=== PATIENT | female | born 1950 | race Caucasian/White ===

== ENCOUNTER → 2016-06-06 | Outpatient (CLI) | payer MEDICARE, OTHER ==
[2016-06-06 12:51] LABS: MEAN CORPUSCULAR HEMOGLOBIN 28.1 pg (27.0-33.0); MEAN CORPUSCULAR VOLUME 87.7 fl (80.0-96.0); WHITE BLOOD COUNT 3.5 K/mm3 (4.0-10.0)
== END ==
LOC: M LAB 11:31
PROVIDERS: ATTEND Internal Medicine Pulmonary Disease
DX: I27.9 Pulmonary heart disease, unspecified (principal)

== ENCOUNTER → 2016-08-21 | Outpatient (CLI) | payer MEDICARE, OTHER ==
[2016-08-21 13:57] LABS: ALBUMIN 3.4 GM/DL (3.2-5.2); ALBUMIN/GLOBULIN RATIO 1.17 (1.00-1.93); ALKALINE PHOSPHATASE 83 U/L (45-117); ALT/SGPT 15 U/L (12-78); ANION GAP 9 MEQ/L (8-16); AST/SGOT 10 U/L (15-37); BILIRUBIN,TOTAL 0.1 MG/DL (0.2-1.0); BLOOD UREA NITROGEN 11 MG/DL (7-18); CALCIUM LEVEL 8.1 MG/DL (8.8-10.2); CARBON DIOXIDE LEVEL 25 MEQ/L (21-32); CHLORIDE LEVEL 109 MEQ/L (98-107); CREATININE FOR GFR 0.61 MG/DL (0.55-1.02); GLOMERULAR FILTRATION RATE > 60.0 (>45); GLUCOSE, FASTING 153 MG/DL (80-110); POTASSIUM SERUM 3.8 MEQ/L (3.5-5.1); SODIUM LEVEL 143 MEQ/L (136-145); TOTAL PROTEIN 6.3 GM/DL (6.4-8.2)
== END ==
LOC: M LAB 11:35
PROVIDERS: ATTEND Internal Medicine Pulmonary Disease
DX: I27.9 Pulmonary heart disease, unspecified (principal)

== ENCOUNTER → 2016-10-29 | Outpatient (CLI) | payer MEDICARE, OTHER ==
--- NOTE | 2016-10-29 15:57 | ECHO ---
DATE OF STUDY: 10/29/2016 REFERRING PHYSICIAN: Dr. Srinath Barriga INDICATION: Pulmonary hypertension. HEIGHT: 63 inches. WEIGHT: 205 pounds. 2D MEASUREMENTS: Left atrium: 4.0 cm Ventricular septum: 1.10 cm Posterior wall: 1.19 cm Left ventricle diastole: 4.2 cm Aortic root: 3.1 cm LVOT: 1.8 cm Inferior vena cava: (>50% respiratory variation) DOPPLER MEASUREMENTS: Aortic valve velocity: 190 cm/s LVOT velocity: 90.2 cm/s LVOT VTI: 21.5 cm Mild mitral regurgitation. Mitral E velocity: 60.7 cm/s Mitral A velocity: 87.4 cm/s Mild deceleration time 285 milliseconds Very mild tricuspid regurgitation. Pulmonary artery systolic pressure: 27 mmHg by pulmonary acceleration time Pulmonary acceleration time 116 milliseconds MITRAL ANNULAR TISSUE DOPPLER: E prime lateral: 13.9 cm/s DESCRIPTION: Rhythm was sinus. This was a moderately technically difficult echocardiogram. No pericardial effusion. This was a 2D, M-mode, color flow Doppler, and pulse wave Doppler examination and included mitral annular tissue Doppler. CONCLUSIONS: 1. Normal pulmonary artery systolic pressure (27 mmHg). Central venous pressure estimated to be 5-10 mmHg. Normal right ventricle size and systolic function. Normal right atrial size. 2. Normal left ventricle internal dimensions and wall thickness. Normal regional left ventricle (LV) wall motion and wall thickening. Normal LV systolic functioning. Left ventricular ejection fraction (LVEF) 70% by visual estimate. Normal LV diastolic dysfunction. 3. Mild left atrial dilatation. 4. Moderate aortic valve sclerosis of a three-cusp aortic valve. No aortic stenosis or aortic regurgitation.
== END ==
LOC: M CARPUL 08:16
PROVIDERS: ATTEND Internal Medicine Pulmonary Disease
DX: I27.9 Pulmonary heart disease, unspecified (principal); I35.8 Other nonrheumatic aortic valve disorders

== ENCOUNTER → 2016-11-27 | Outpatient (CLI) | payer MEDICARE, OTHER ==
[~2016-11-27] MED LIST: BRIM1OPD; CYCL10TA PO; DEXI60CA2; FURO20TA2; JANU100T; LETA1TAB PO; MYCO500T; PENT400T47; PERC5TAB12 PO; QUIN1TAB15; ROSU10TA2; SERT-155; SPIR25TA2; SYNT50TA; TIMO0.5S29; VESI10TA2; ZITHTAB PO
== END ==
LOC: M LAB 11:23
PROVIDERS: ATTEND Internal Medicine Pulmonary Disease
DX: I27.9 Pulmonary heart disease, unspecified (principal)

== ENCOUNTER 2017-01-30 16:02 | Emergency (ER) | payer MEDICARE, OTHER ==
[~2017-01-30] VITALS: Ht 160 cm; Wt 93.6 kg
[2017-01-30] MEDS ORDERED: FURO20TA2 (16:15)
[2017-01-30] MEDS ORDERED: TIMO0.5S29 (16:15)
[2017-01-30] MEDS ORDERED: SPIR25TA2 (16:15)
[2017-01-30] MEDS ORDERED: MYCO500T (16:15)
[2017-01-30] MEDS ORDERED: JANU100T (16:15)
[2017-01-30] MEDS ORDERED: LETA1TAB PO (16:15)
[2017-01-30] MEDS ORDERED: ROSU10TA2 (16:15)
[2017-01-30] MEDS ORDERED: QUIN1TAB15 (16:15)
[2017-01-30] MEDS ORDERED: PENT400T47 (16:15)
[2017-01-30] MEDS ORDERED: VESI10TA2 (16:15)
[2017-01-30] MEDS ORDERED: SYNT50TA (16:15)
[2017-01-30] MEDS ORDERED: BRIM1OPD (16:15)
[2017-01-30] MEDS ORDERED: SERT-155 (16:15)
[2017-01-30] MEDS ORDERED: DEXI60CA2 (16:15)
[2017-01-30] MEDS ORDERED: PERCOCET 5MG/325MG TAB PO ONE (18:30)
[2017-01-30] MEDS ORDERED: PERC5TAB12 PO (19:34)
[2017-01-30] MEDS ORDERED: CYCL10TA PO (19:34)
[2017-01-30] MEDS ORDERED: ZITHTAB PO (19:40)
[2017-01-30 19:48] VITALS: BP 131/83
--- NOTE | 2017-01-30 20:40 | REP ---
LEFT RIB SERIES: Four views of the left ribs are performed. There is a possible nondisplaced fracture of the left 8th rib laterally. No other acute fracture is seen. There are old healed fractures of the left 5th through 7th ribs. An accompanying view of the chest demonstrates no acute infiltrate or pneumothorax. There is no pleural effusion identified. IMPRESSION: Possible acute fracture lateral left 8th rib. Signed by Dylan Sevilla MD 01/31/2017 05:13 P
== END 2017-01-30 19:49 | disposition home or self-care (01) ==
LOC: M ED 16:02
DX: S22.32XA Fracture of one rib, left side, initial encounter for closed fracture (principal); W19.XXXA Unspecified fall, initial encounter; Y92.9 Unspecified place or not applicable; Y93.9 Activity, unspecified; Y99.9 Unspecified external cause status; I51.9 Heart disease, unspecified; E78.00 Pure hypercholesterolemia, unspecified; I10 Essential (primary) hypertension; I27.2 Other secondary pulmonary hypertension; H40.9 Unspecified glaucoma; E11.9 Type 2 diabetes mellitus without complications; E03.9 Hypothyroidism, unspecified; M32.9 Systemic lupus erythematosus, unspecified; M35.9 Systemic involvement of connective tissue, unspecified; Z79.899 Other long term (current) drug therapy; Z88.2 Allergy status to sulfonamides

== ENCOUNTER 2017-02-04 08:35 | Emergency (ER) | payer MEDICARE, OTHER ==
[~2017-02-04] VITALS: Ht 160 cm; Wt 93.6 kg
[2017-02-04] MEDS ORDERED: MORPHINE 4 MG/ML 1ML SYRINGE IV ONE ×2 (09:30→11:00)
[2017-02-04] MEDS ORDERED: ALBUTEROL SULFATE 2.5 MG/0.5 ML INH NEB SOLN NEB ONE (09:30)
[2017-02-04] MEDS ORDERED: NS 1,000 ML IV ONE (09:30)
[2017-02-04 10:03] LABS: BASO % 0.2 % (0.0-1.0); EOS # 0.1 10^3/uL (0.0-0.50); EOS % 1.7 % (0.0-3.0); IMMATURE GRANULOCYTE % 0.3 % (0-0); LYMPH # 0.6 10^3/uL (1.5-4.5); LYMPH % 11.1 % (24.0-44.0); MEAN CORPUSCULAR HGB CONC 33.3 g/dl (32.0-36.5); MONO # 0.5 10^3/uL (0.0-0.8); MONO % 8.7 % (0.0-5.0); NEUTROPHILS # 4.5 10^3/uL (1.8-7.7); PLATELET COUNT, AUTOMATED 174 10^3/uL (150-450); RED CELL DISTRIBUTION WIDTH 13.7 % (11.5-14.5); WHITE BLOOD COUNT 5.8 10^3/uL (4.0-10.0)
[2017-02-04 10:06] LABS: ADD MANUAL DIFFER NO; DIFF SLIDE NUMBER 158
--- NOTE | 2017-02-04 10:12 | REP ---
Chest x-ray: Two views. History: Dyspnea and cough. Comparison chest x-ray: January 30, 2017. This showed a questionable left lateral 8th rib fracture. Comparison is also made with September 16, 2015 prior chest x-ray. Findings: There is plate-like atelectasis in the bases bilaterally, left more prominently than right and new from prior studies. There is no evidence of pneumothorax. Old healed rib fractures are noted on the left. The recent rib fracture is not visible radiographically on today's chest x-ray views. There is no evidence of hydrothorax. No mediastinal widening is seen. The heart is not enlarged. Left hemidiaphragm is somewhat elevated. Impression: Bibasilar plate-like atelectasis, left greater than right, new from the prior study. No pneumothorax or hydrothorax seen. Old left-sided rib fractures visible. The patient's rib series from January 30, 2017 showed a probable left lateral 8th rib fracture. This cannot be visualized on today's PA and lateral views. Signed by Gregorio Meza MD 02/04/2017 03:28 P
[2017-02-04 11:02] LABS: ANION GAP 6 MEQ/L (8-16); BLOOD UREA NITROGEN 12 MG/DL (7-18); CALCIUM LEVEL 9.2 MG/DL (8.8-10.2); CARBON DIOXIDE LEVEL 27 MEQ/L (21-32); CHLORIDE LEVEL 106 MEQ/L (98-107); CREATININE FOR GFR 0.65 MG/DL (0.55-1.02); GLOMERULAR FILTRATION RATE > 60.0 (>45); GLUCOSE, FASTING 118 MG/DL (80-110); POTASSIUM SERUM 4.3 MEQ/L (3.5-5.1); SODIUM LEVEL 139 MEQ/L (136-145)
[2017-02-04 11:07] LABS: ALBUMIN/GLOBULIN RATIO 1.18 (1.00-1.93); BILIRUBIN,DIRECT 0.1 MG/DL (0.0-0.2); BILIRUBIN,TOTAL 0.3 MG/DL (0.2-1.0); TOTAL PROTEIN 7.4 GM/DL (6.4-8.2)
--- NOTE | 2017-02-04 11:54 | REP ---
Left clavicle two views : There is no fracture or dislocation. Mineralization and joint spaces are normal. There are no calcifications or foreign bodies. Impression: Negative left clavicle . Signed by Dylan Gould MD 02/04/2017 11:45 A
[2017-02-04] MEDS ORDERED: HYDROmorphone 2 MG TAB PO ONE (12:15)
[2017-02-04] MEDS ORDERED: PERC5TAB12 PO (13:38)
[2017-02-04 13:54] VITALS: BP 127/84
== END 2017-02-04 13:56 | disposition home or self-care (01) ==
LOC: M ED 08:35
DX: J98.11 Atelectasis (principal); S22.32XA Fracture of one rib, left side, initial encounter for closed fracture; W17.89XA Other fall from one level to another, initial encounter; Y92.89 Other specified places as the place of occurrence of the external cause; Y93.89 Activity, other specified; Y99.8 Other external cause status; E11.9 Type 2 diabetes mellitus without complications; I27.0 Primary pulmonary hypertension; E78.5 Hyperlipidemia, unspecified; E03.9 Hypothyroidism, unspecified; K21.9 Gastro-esophageal reflux disease without esophagitis; Z79.899 Other long term (current) drug therapy; Z79.2 Long term (current) use of antibiotics; Z96.0 Presence of urogenital implants; Z88.2 Allergy status to sulfonamides

== ENCOUNTER 2017-04-18 10:22 | Day surgery (SDC) | payer MEDICARE, OTHER ==
[~2017-04-18] VITALS: Ht 160 cm; Wt 92.1 kg
[~2017-04-18 10:22] MED LIST changes: +ACCU40TA PO; +ALPH0.156 OU; +CELL500T PO; +CRES10TA32 PO; +DEXI30CA2 PO; +JANU100T PO; +LASI20TA PO; +LEVO50TA5 PO; +PENT400T47 PO; +SPIR25TA2 PO; +TIMO0.5S29 OU; +VESI10TA2 PO; +ZOLO50TA PO; +[UNRECOGNIZED DRUG - CODE] IV
[2017-04-18] MEDS ORDERED: NS 1,000 ML IV ONE (10:30)
[2017-04-18] MEDS ORDERED: PROPOFOL 200 MG/20 ML VIAL As Ordered ONE (11:20)
[2017-04-18] MEDS ORDERED: LIDOCAINE 2% INJ 100 MG/5 ML SDV (FOR ANES.) As Ordered ONE (11:20)
--- NOTE | 2017-04-18 11:35 | ROOR ---
Patient Name: Marga Larose Procedure Date: 04/18/2017 11:17 AM Date of : 1950 Age: 67 Room: [facility] Gender: Female Note Status: Finalized Procedure: Upper GI endoscopy + Endoloop placement Indications: Dysphagia Providers: Bayron Amador MD Referring MD: ANNETTE BAGLEY DO Requesting Provider: Medicines: Monitored Anesthesia Care Complications: No immediate complications. Procedure: Pre-Anesthesia Assessment: - The heart rate, respiratory rate, oxygen saturations, blood pressure, adequacy of pulmonary ventilation, and response to care were monitored throughout the procedure. The Endoscope was introduced through the mouth, and advanced to the second part of duodenum. The upper GI endoscopy was accomplished without difficulty. The patient tolerated the procedure well. Findings: The Z-line was regular and was found 35 cm from the incisors. A medium-sized hiatal hernia was present. Multiple medium pedunculated and sessile polyps with no bleeding and no stigmata of recent bleeding were found in the gastric fundus. One ligature was successfully placed. The exam was otherwise without abnormality. The exam of the duodenum was otherwise normal. Impression: - Z-line regular, 35 cm from the incisors. - Medium-sized hiatal hernia. - Multiple gastric polyps. Ligated. - The examination was otherwise normal. - No specimens collected. - The examination was otherwise normal. Recommendation: - Patient has a contact number available for emergencies. The signs and symptoms of potential delayed complications were discussed with the patient. Return to normal activities tomorrow. Written discharge instructions were provided to the patient. - High fiber diet. - Discharge patient to home. - Continue present medications. - Return to referring physician. - The findings and recommendations were discussed with the patient's family. Bayron Amador MD Bayron Amador MD 04/18/2017 11:35:23 AM This report has been signed electronically. Number of Addenda: 0 Note Initiated On: 04/18/2017 11:17 AM Estimated Blood Loss: Estimated blood loss: none.
--- NOTE | 2017-04-18 11:50 | ROOR ---
Patient Name: Marga Larose Procedure Date: 04/18/2017 11:18 AM Date of : 1950 Age: 67 Room: [facility] Gender: Female Note Status: Finalized Procedure: Total Colonoscopy to Cecum Indications: Screening for colorectal malignant neoplasm Providers: Bayron Amador MD Referring MD: ANNETTE BAGLEY DO Requesting Provider: Medicines: Monitored Anesthesia Care Complications: No immediate complications. Procedure: Pre-Anesthesia Assessment: - The heart rate, respiratory rate, oxygen saturations, blood pressure, adequacy of pulmonary ventilation, and response to care were monitored throughout the procedure. The Colonoscope was introduced through the anus and advanced to the cecum, identified by appendiceal orifice and ileocecal valve. The colonoscopy was performed without difficulty. The patient tolerated the procedure well. The quality of the bowel preparation was excellent. Findings: The perianal and digital rectal examinations were normal. Non-bleeding internal hemorrhoids were found during retroflexion. The hemorrhoids were small and Grade I (internal hemorrhoids that do not prolapse). Multiple small and large-mouthed diverticula were found in the recto-sigmoid colon, sigmoid colon and descending colon. The exam was otherwise without abnormality on direct and retroflexion views. Impression: - Non-bleeding internal hemorrhoids. - Diverticulosis in the recto-sigmoid colon, in the sigmoid colon and in the descending colon. - The examination was otherwise normal on direct and retroflexion views. - No specimens collected. - The exam was otherwise normal to the cecum. Recommendation: - Patient has a contact number available for emergencies. The signs and symptoms of potential delayed complications were discussed with the patient. Return to normal activities tomorrow. Written discharge instructions were provided to the patient. - High fiber diet. - Discharge patient to home. - Continue present medications. - Repeat colonoscopy in 10 years for screening purposes. - Return to referring physician. - The findings and recommendations were discussed with the patient's family. Bayron Amador MD Bayron Amador MD 04/18/2017 11:49:45 AM This report has been signed electronically. Number of Addenda: 0 Note Initiated On: 04/18/2017 11:18 AM Estimated Blood Loss: Estimated blood loss: none.
[2017-04-18 12:10] VITALS: BP 139/90
== END 2017-04-18 12:27 | disposition home or self-care (01) ==
LOC: M OPP 10:22
PROVIDERS: ATTEND Internal Medicine Gastroenterology
DX: Z12.11 Encounter for screening for malignant neoplasm of colon (principal); K57.30 Diverticulosis of large intestine without perforation or abscess without bleeding; K64.0 First degree hemorrhoids; R13.10 Dysphagia, unspecified; K44.9 Diaphragmatic hernia without obstruction or gangrene; K31.7 Polyp of stomach and duodenum; K58.9 Irritable bowel syndrome, unspecified; I10 Essential (primary) hypertension; E78.5 Hyperlipidemia, unspecified; E11.9 Type 2 diabetes mellitus without complications; E03.9 Hypothyroidism, unspecified; K21.9 Gastro-esophageal reflux disease without esophagitis; M25.60 Stiffness of unspecified joint, not elsewhere classified; M32.9 Systemic lupus erythematosus, unspecified; F41.9 Anxiety disorder, unspecified; I27.0 Primary pulmonary hypertension; Z88.8 Allergy status to other drugs, medicaments and biological substances; Z88.2 Allergy status to sulfonamides; Z79.899 Other long term (current) drug therapy; Z80.9 Family history of malignant neoplasm, unspecified
CPT/HCPCS: 43235; G0121

== ENCOUNTER → 2017-07-30 | Outpatient (CLI) | payer MEDICARE, OTHER | LOC: M CARPUL 08:16 | DX: I27.21 Secondary pulmonary arterial hypertension (principal) | CPT/HCPCS: 93306 ==

== ENCOUNTER → 2019-01-07 | Outpatient (CLI) | payer MEDICARE, OTHER ==
[~2019-01-07] MED LIST changes: +CRES10TA PO; -CRES10TA32 PO; -LASI20TA PO; +LASI20TA3 PO; -QUIN1TAB15; +QUIN1TAB4; -ROSU10TA2; +ROSU10TA6; +SPIR-10; +SPIR-10 PO; -SPIR25TA2; -SPIR25TA2 PO
--- NOTE | 2019-01-07 08:24 | REP ---
Clinical: Intermittent abdominal pain. Technique: Axial noncontrast images from the lung bases to the pubic symphysis with coronal and sagittal re-formations. Comparison: None Findings: Lung bases demonstrate moderate emphysematous changes and scattered scarring. Liver, pancreas, bilateral adrenal glands and right kidney appear normal. Splenic calcifications are consistent with prior infectious/granulomas disease. Cholelithiasis is appreciated without CT evidence for acute cholecystitis. Left kidney includes 3 cm hypodensity likely representing cyst. The enteric system is without obstruction or acute inflammatory process normal cecum and terminal ileum identified in the right lower quadrant. Pelvis demonstrates partially collapsed normal bladder and evidence for prior hysterectomy. No pelvic fluid or ascites. No free air. No adenopathy. Atherosclerotic changes of the aorta and vasculature noted without aneurysm. Musculoskeletal structures demonstrate degenerative changes without focal abnormality. Impression: 1. 3 cm left renal hypodensity likely representing cyst which may warrant sonographic ultrasound for confirmation. 2. Cholelithiasis. 3. No acute abdominopelvic pathology appreciated. Electronically Signed by Ricardo Charles MD 01/07/2019 08:16 A
== END ==
LOC: M RAD 07:25
PROVIDERS: ATTEND Family Medicine
DX: R10.9 Unspecified abdominal pain (principal)

== ENCOUNTER → 2019-01-20 | Outpatient (CLI) | payer MEDICARE, OTHER ==
--- NOTE | 2019-01-25 09:54 | ECHO ---
DATE OF STUDY: 01/20/2019 REFERRING PHYSICIAN: Dr. Srinath Torres INDICATION: Secondary pulmonary hypertension. HEIGHT: 63 inches. WEIGHT: 198 pounds. 2-D MEASUREMENTS: Ventricular septum: 0.85 cm Posterior wall: 0.90 cm Left ventricle diastole: 4.7 cm LVOT: 2.1 cm Aortic root: 2.9 cm Left atrium: 4.3 cm Inferior vena cava: 1.2 cm DOPPLER MEASUREMENTS: No aortic regurgitation No aortic stenosis Aortic valve velocity: 207 cm/sec LVOT velocity: 94.6 cm/sec Very mild mitral regurgitation Mitral E velocity: 69.4 cm/sec Mitral A velocity: 95.1 cm/sec Mitral deceleration time: 313 ms Very mild tricuspid regurgitation Estimated right ventricular systolic pressure 29 mmHg assuming a right atrial pressure of 5 mmHg No pulmonic regurgitation Pulmonary artery systolic pressure 14 mmHg MITRAL ANNULAR TISSUE DOPPLER: E prime lateral: 10.0 cm/sec E prime septal: 6.42 cm/sec DESCRIPTION: The rhythm was sinus. Image quality was adequate. No pericardial effusion. This was a 2-D, M-mode, color flow Doppler and pulse wave Doppler examination and included mitral annular tissue Doppler. CONCLUSIONS: 1. Normal pulmonary artery systolic pressure and estimated right ventricle systolic pressure. Normal right ventricle size and systolic function. Normal right atrial size. Central venous pressure estimated to be 5 mmHg. 2. Normal left ventricle internal dimensions and wall thickness. Normal regional LV wall motion and wall thickening. Normal LV systolic function. LVEF 65% by visual estimate. Grade 1 LV diastolic dysfunction. 3. Mild left atrial dilatation. 4. Moderate aortic valve sclerosis of a 3-cuspid aortic valve. No aortic regurgitation or stenosis. ADDITIONAL COMMENTS AND RECOMMENDATIONS: Suggest a followup echocardiogram Doppler in 3 years.
== END ==
LOC: M CARPUL 10:00
PROVIDERS: ATTEND Internal Medicine Pulmonary Disease
DX: I27.21 Secondary pulmonary arterial hypertension (principal); I35.8 Other nonrheumatic aortic valve disorders

== ENCOUNTER → 2019-02-11 | Outpatient (CLI) | payer MEDICARE, OTHER ==
[~2019-02-11] MED LIST changes: -SERT-155; +SERT50TA29
--- NOTE | 2019-02-11 12:50 | REP ---
RENAL ULTRASOUND: Real-time sonographic evaluation of the kidneys performed. The kidneys are normal in size and echotexture, right kidney measuring 12.0 x 5.4 x 4.5 cm and left kidney 12.3 x 5.0 x 5.0 cm. There is no hydronephrosis. There appears to be an extrarenal pelvis on the right. A simple cyst in the upper pole of the left kidney measures 3.1 x 3.5 x 3.4 cm. This corresponds to the abnormality seen on the recent CT of 01/07/2019. There is no other evidence of renal mass. The bladder is moderately distended with a volume of 602 mL, measuring 9.5 x 9.9 x 9.8 cm. No gross mass or calculus is seen. There are bilateral ureteral jets in the urinary bladder with Doppler color evaluation. IMPRESSION: Simple cyst upper pole left kidney corresponds to the abnormality seen on the recent CT of 01/07/2019. Electronically Signed by Dylan Sevilla MD 02/12/2019 09:23 A
== END ==
LOC: M RAD 10:53
PROVIDERS: ATTEND Family Medicine
DX: N28.1 Cyst of kidney, acquired (principal)

== ENCOUNTER → 2019-06-15 | Outpatient (CLI) | payer MEDICARE, OTHER ==
[~2019-06-15] MED LIST changes: +E-Z-GAS II EFFERVESCENT PACKET (SODIUM BICARB./CITRIC ACID/SIMETHICONE) As Ordered ONE; +E-Z-HD 98% w/w 340GM SUSP BTL As Ordered ONE; +E-Z-PAQUE 96% w/w SUSP 176GM BTL As Ordered ONE
--- NOTE | 2019-06-15 20:03 | REP ---
UPPER GI AIR CONTRAST AND SMALL BOWEL FOLLOW THROUGH The procedure was performed under the direct supervision of Dr. Meza. The images were reviewed with Dr. Meza The data warehouse analyst film shows no organomegaly or pathological masses. The intestinal gas pattern is non-specific. Liquid barium and gas producing crystals were given in the erect position as well as liquid barium in the prone oblique position in order to perform a double contrast upper GI examination. Additionally liquid barium was given at the end of the examination in order to perform a small bowel follow through. The oral and pharyngeal stages of deglutition are unremarkable. Esophageal transport is prompt and efficient and there is no esophagitis, stricture or mucosal ring. There is a sliding type hiatal hernia. In there is gastroesophageal reflux demonstrated to above the level of the alexis. Within the stomach there are thickened gastric folds which likely represents gastritis. There is no elena ulcer identified. In the duodenal bulb there is a smooth filling defect which, on some images, appears to have a central ulcer niche. The barium column was followed through the small bowel to the level of the terminal ileum. Small bowel transit time is approximately 30 minutes . During fluoroscopy gentle palpation shows all loops are freely movable and pliable. There are no fixed or angulated loops. The small bowel mucosal pattern is normal in course and caliber. There is no transition to suggest a partial small-bowel obstruction. Spot filming of the terminal ileum shows it to be unremarkable. Impression: 1. There is a sliding type hiatal hernia. There is gastroesophageal reflux demonstrated to above the level of the alexis. 2. There are thickened gastric folds which likely represents gastritis. There is no elena ulcer identified. 3. In the duodenal bulb there is a smooth filling defect which, on some images, appears to have a central ulcer niche. 4.5 minutes of fluoro time was utilized for this procedure. Electronically Signed by TIAGO Shelley 06/15/2019 04:47 P Electronically Signed by Gregorio Meza MD 06/15/2019 07:53 P
== END ==
LOC: M RAD 09:34
PROVIDERS: ATTEND Surgery
DX: R11.2 Nausea with vomiting, unspecified (principal); R19.7 Diarrhea, unspecified

== ENCOUNTER → 2019-09-03 | Outpatient (CLI) | payer MEDICARE, OTHER ==
[~2019-09-03] MED LIST changes: +CYCL-707 PO; -CYCL10TA PO; -E-Z-GAS II EFFERVESCENT PACKET (SODIUM BICARB./CITRIC ACID/SIMETHICONE) As Ordered ONE; -E-Z-HD 98% w/w 340GM SUSP BTL As Ordered ONE; -E-Z-PAQUE 96% w/w SUSP 176GM BTL As Ordered ONE
[2019-09-03 16:24] LABS: BLOOD UREA NITROGEN 11 MG/DL (7-18); CALCIUM LEVEL 8.6 MG/DL (8.8-10.2); CARBON DIOXIDE LEVEL 25 MEQ/L (21-32); CHLORIDE LEVEL 109 MEQ/L (98-107); CREATININE FOR GFR 0.62 MG/DL (0.55-1.30); GLOMERULAR FILTRATION RATE > 60.0 (>45); GLUCOSE, FASTING 127 MG/DL (70-100); POTASSIUM SERUM 4.1 MEQ/L (3.5-5.1); SODIUM LEVEL 142 MEQ/L (136-145)
== END ==
LOC: M WUC 13:19
PROVIDERS: ATTEND Ophthalmology Retina Specialist
DX: H35.349 Macular cyst, hole, or pseudohole, unspecified eye (principal)

== ENCOUNTER → 2019-09-30 | Outpatient (CLI) | payer MEDICARE, OTHER ==
--- NOTE | 2019-10-03 07:50 | ECHO ---
DATE OF PROCEDURE: 09/30/2019 REFERRING PHYSICIAN: Dr. Srinath Barriga INDICATION: Pulmonary artery hypertension. HEIGHT: 62 inches WEIGHT: 196 pounds 2D MEASUREMENTS: Left atrium: 4.4 cm Left ventricle diastole: 3.3 cm Ventricular septum: 1.16 cm Posterior wall: 1.21 cm Aortic root: 3.3 cm Aortic annulus: 2.0 cm Inferior vena cava: 1.3 cm (more than 50% respiratory variation). DOPPLER MEASUREMENTS: No aortic stenosis. No aortic regurgitation. Aortic valve velocity: 187 cm/s LVOT velocity: 93.3 cm/s Mild mitral regurgitation. No mitral stenosis. Mitral E velocity: 61.3 cm/s Mitral A velocity: 104 cm/s Mitral deceleration time: 257 ms Very mild tricuspid regurgitation. Estimated right ventricle systolic pressure: 26-31 mmHg. No pulmonic regurgitation. Pulmonary acceleration time: 127 ms MITRAL ANNULAR TISSUE DOPPLER: E prime septal: 5.2 cm/s E prime lateral: 8.8 cm/s DESCRIPTION: Rhythm was sinus. Image quality was adequate. This was a 2D, M-mode, color flow Doppler and pulse wave Doppler examination and included mitral annular tissue Doppler. CONCLUSIONS: 1. Suggestive of normal pulmonary artery systolic pressure and estimated right ventricle systolic pressure. 2. Normal right ventricle size and systolic function. 3. No atrial septal defect detected anatomically or by color flow Doppler. 4. No pericardial effusion. 5. Normal left ventricle internal dimensions and wall thickness. Normal regional left ventricular (LV) wall motion and wall thickening. Normal LV systolic function. Left ventricular ejection fraction (LVEF) 65% by visual assessment. Grade 1 LV diastolic dysfunction. Normal longitudinal peak strain pattern for the left ventricle. 6. Moderate aortic valve sclerosis of a 3-cusp aortic valve. No aortic stenosis or aortic regurgitation. 7. Calcified atheroma at the sinotubular junction. 8. Mild left atrial dilatation. 9. False tendon at the apex of the left ventricle (normal variant). 10. Otherwise normal appearing echocardiogram Doppler findings.
== END ==
LOC: M CARPUL 08:28
PROVIDERS: ATTEND Internal Medicine Pulmonary Disease
DX: I27.20 Pulmonary hypertension, unspecified (principal)

== ENCOUNTER → 2020-07-13 | Outpatient (CLI) | payer MEDICARE, OTHER ==
--- NOTE | 2020-07-14 12:53 | ECHO ---
DATE OF PROCEDURE: 07/13/2020 Age: 70 Gender: Female Height: 62 inches Weight: 185 pounds Body surface area: 1.85 m2 PATIENT LOCATION: Outpatient. REFERRING PHYSICIAN: CHANDNI Chapman. INDICATION: Pulmonary hypertension. MEASUREMENTS: 2D Measurements: RV 2.9 cm LV 5.1 cm Septum 1.0 cm Posterior wall 1.0 cm Aortic Root 3.4 cm LA 4.7 cm LVEF 65% Doppler Measurements: AV 2.11 m/s LVOT 1.14 m/s Mean AV gradient 10 mmHg Dimensionless index 0.56 MV-E 107, A 106, E/A ratio 1 Early mitral deceleration time 277 msec E prime medial 8.8, A prime medial 9.7, E prime lateral 12.9 Average E/E prime ratio 10/PCWP 14.4 mmHg PV 0.8 m/s Pulmonary artery acceleration time 124 msec RVSP 30-35 mmHg IVC 1.6 cm COMMENTS: Normal sinus rhythm without intraventricular conduction disturbance. M-mode and two-dimensional echocardiography was performed with pulse, continuous wave, color flow, and tissue Doppler studies. Normal left ventricular size, wall thickness, and wall motion. Moderately dilated left atrium with currently normal Doppler assessment of LV diastolic function and estimated mean left atrial pressure. Normal right heart chamber sizes and motion with Doppler estimated pulmonary arterial systolic pressure upper limits of normal to borderline increased. Normal IVC size and collapse against an elevated central venous pressure. Normal aortic dimensions. Suspected three equal size aortic cusps with asymmetrical cusp thickening with markedly reduced left coronary cusp motion with no significant LV outflow tract obstruction (increased peak transvalvular velocity believed to be related to hyperdynamic flow rather than aortic stenosis). No more than trace aortic insufficiency. Mild degenerative changes of the mitral valve apparatus with adequate leaflet excursion and no posterior systolic buckling, but mild mitral insufficiency. Normal appearing tricuspid valve with very mild insufficiency. No apparent intracardiac mass or pericardial effusion. MTDD
== END ==
LOC: M CARPUL 11:15
PROVIDERS: ATTEND Nurse Practitioner Family
DX: I27.21 Secondary pulmonary arterial hypertension (principal)

== ENCOUNTER → 2021-02-28 | Outpatient (CLI) | payer MEDICARE, OTHER ==
[2021-02-28 16:34] LABS: BLOOD UREA NITROGEN 13 MG/DL (7-18); CALCIUM LEVEL 8.9 MG/DL (8.8-10.2); CARBON DIOXIDE LEVEL 24 MEQ/L (21-32); CHLORIDE LEVEL 108 MEQ/L (98-107); CREATININE FOR GFR 0.64 MG/DL (0.55-1.30); GLOMERULAR FILTRATION RATE > 60.0 (>39); GLUCOSE, FASTING 94 MG/DL (70-100); NT-PRO BNP 97 PG/ML (<125); POTASSIUM SERUM 4.3 MEQ/L (3.5-5.1); SODIUM LEVEL 140 MEQ/L (136-145)
== END ==
LOC: M WUC 14:04
PROVIDERS: ATTEND Internal Medicine Pulmonary Disease
DX: I27.21 Secondary pulmonary arterial hypertension (principal)

== ENCOUNTER → 2021-05-03 | Outpatient (CLI) | payer MEDICARE, OTHER | LOC: M CARPUL 12:16 | PROVIDERS: ATTEND Internal Medicine Pulmonary Disease | DX: I27.21 Secondary pulmonary arterial hypertension (principal); M35.9 Systemic involvement of connective tissue, unspecified ==

== ENCOUNTER → 2021-09-05 | Outpatient (CLI) | payer MEDICARE, OTHER | LOC: M WUC 13:47 | DX: I27.29 Other secondary pulmonary hypertension (principal); I50.810 Right heart failure, unspecified ==

== ENCOUNTER → 2021-09-19 | Outpatient (CLI) | payer MEDICARE, OTHER | LOC: M CARPUL 08:47 | PROVIDERS: ATTEND Internal Medicine Pulmonary Disease | DX: I27.21 Secondary pulmonary arterial hypertension (principal); M35.9 Systemic involvement of connective tissue, unspecified; R00.1 Bradycardia, unspecified ==

== ENCOUNTER → 2021-10-07 | Outpatient (CLI) | payer MEDICARE, OTHER | LOC: M RAD 15:07 | PROVIDERS: ATTEND Physician Assistant | DX: S20.211A Contusion of right front wall of thorax, initial encounter (principal); S70.01XA Contusion of right hip, initial encounter; M16.11 Unilateral primary osteoarthritis, right hip; S22.41XA Multiple fractures of ribs, right side, initial encounter for closed fracture; I70.0 Atherosclerosis of aorta; X58.XXXA Exposure to other specified factors, initial encounter; Y92.9 Unspecified place or not applicable; Y93.9 Activity, unspecified; Y99.9 Unspecified external cause status ==

== ENCOUNTER → 2022-04-15 | Outpatient (CLI) | payer MEDICARE, OTHER | LOC: M PLAIMG 12:50 | PROVIDERS: ATTEND Internal Medicine Pulmonary Disease | DX: I50.9 Heart failure, unspecified (principal); M06.9 Rheumatoid arthritis, unspecified; M32.19 Other organ or system involvement in systemic lupus erythematosus; K44.9 Diaphragmatic hernia without obstruction or gangrene; J84.10 Pulmonary fibrosis, unspecified ==

== ENCOUNTER → 2022-05-13 | Outpatient (CLI) | payer MEDICARE, OTHER ==
[2022-05-13 16:37] LABS: HEMOGLOBIN 9.7 g/dl (12.0-15.5); MEAN CORPUSCULAR HEMOGLOBIN 23.4 pg (27.0-33.0); MEAN CORPUSCULAR HGB CONC 29.4 g/dl (32.0-36.5); MEAN CORPUSCULAR VOLUME 79.7 fl (80.0-96.0); PLATELET COUNT, AUTOMATED 212 10^3/uL (150-450); RED BLOOD COUNT 4.14 10^6/uL (4.00-5.40); WHITE BLOOD COUNT 4.5 10^3/uL (4.0-10.0)
[2022-05-13 17:08] LABS: BLOOD UREA NITROGEN 11 MG/DL (9-23); CALCIUM LEVEL 8.5 MG/DL (8.3-10.6); CARBON DIOXIDE LEVEL 25 MMOL/L (20-31); CHLORIDE LEVEL 108 MMOL/L (98-107); CREATININE FOR GFR 0.54 MG/DL (0.55-1.30); GLOMERULAR FILTRATION RATE > 60.0 (>39); GLUCOSE, FASTING 82 MG/DL (74-106); POTASSIUM SERUM 4.2 MMOL/L (3.5-5.1); SODIUM LEVEL 142 MMOL/L (136-145)
== END ==
LOC: M WUC 14:37
PROVIDERS: ATTEND Internal Medicine Pulmonary Disease
DX: I27.21 Secondary pulmonary arterial hypertension (principal); M35.9 Systemic involvement of connective tissue, unspecified

== ENCOUNTER → 2022-06-11 | Outpatient (CLI) | payer MEDICARE, OTHER ==
[2022-06-11 17:08] LABS: HEMOGLOBIN 10.5 g/dl (12.0-15.5); MEAN CORPUSCULAR HEMOGLOBIN 23.2 pg (27.0-33.0); MEAN CORPUSCULAR HGB CONC 29.2 g/dl (32.0-36.5); MEAN CORPUSCULAR VOLUME 79.5 fl (80.0-96.0); PLATELET COUNT, AUTOMATED 223 10^3/uL (150-450); RED BLOOD COUNT 4.53 10^6/uL (4.00-5.40); WHITE BLOOD COUNT 5.3 10^3/uL (4.0-10.0)
== END ==
LOC: M WUC 14:32
PROVIDERS: ATTEND Internal Medicine Pulmonary Disease
DX: I27.21 Secondary pulmonary arterial hypertension (principal); M35.9 Systemic involvement of connective tissue, unspecified

== ENCOUNTER → 2023-04-11 | Outpatient (CLI) | payer MEDICARE, OTHER ==
[~2023-04-11] MED LIST changes: +PROHANCE 279.3MG/ML 15ML VIAL ONE; +PROHANCE 279.3MG/ML 5ML VIAL ONE; +TIMO0.5S20; +TIMO0.5S20 OU; -TIMO0.5S29; -TIMO0.5S29 OU
== END ==
LOC: M PLAIMG 13:35
PROVIDERS: ATTEND Internal Medicine Gastroenterology
DX: R93.3 Abnormal findings on diagnostic imaging of other parts of digestive tract (principal); K76.89 Other specified diseases of liver; N28.1 Cyst of kidney, acquired; N28.89 Other specified disorders of kidney and ureter
CPT/HCPCS: 74183; A9576

== ENCOUNTER → 2023-05-26 | Outpatient (CLI) | payer MEDICARE, OTHER ==
[~2023-05-26] MED LIST changes: +LISI40TA4 PO; +OPSU1TAB PO; -PROHANCE 279.3MG/ML 15ML VIAL ONE; -PROHANCE 279.3MG/ML 5ML VIAL ONE; +TADA20TA29 PO; +VIBE75TA PO
[2023-05-26 13:09] LABS: APPEARANCE, URINE CLEAR (CLEAR); BACTERIA, URINE AUTO NEGATIVE (NEGATIVE); BILIRUBIN, URINE AUTO NEGATIVE (NEGATIVE); BLOOD, URINE BLOOD NEGATIVE (NEGATIVE); COLOR, URINE STRAW (YELLOW); GLUCOSE, URINE (UA) AUTO NEGATIVE (NEGATIVE); KETONE, URINE AUTO NEGATIVE (NEGATIVE); LEUKOCYTE ESTERASE, URINE AUTO NEGATIVE (NEGATIVE); NITRITE, URINE AUTO NEGATIVE (NEGATIVE); PROTEIN, URINE AUTO NEGATIVE (NEGATIVE); RBC, URINE AUTO 0 /HPF (0-3); SPECIFIC GRAVITY URINE AUTO 1.006 (1.002-1.035); SQUAMOUS EPITHELIAL CELL UR AU 0 /HPF (0-6); UROBILINOGEN, URINE AUTO 0.2 mg/dL (0.0-2.0); WBC, URINE AUTO 1 /HPF (0-3)
[2023-05-26 13:14] LABS: HEMATOCRIT 38.8 % (36.0-47.0); MEAN CORPUSCULAR HEMOGLOBIN 25.4 pg (27.0-33.0); MEAN CORPUSCULAR HGB CONC 30.9 g/dl (32.0-36.5); PLATELET COUNT, AUTOMATED 234 10^3/uL (150-450); RED BLOOD COUNT 4.73 10^6/uL (4.00-5.40); WHITE BLOOD COUNT 4.1 10^3/uL (4.0-10.0)
[2023-05-26 13:39] LABS: BLOOD UREA NITROGEN 13 MG/DL (9-23); CARBON DIOXIDE LEVEL 24 MMOL/L (20-31); CHLORIDE LEVEL 109 MMOL/L (98-107); CREATININE FOR GFR 0.51 MG/DL (0.55-1.30); GLOMERULAR FILTRATION RATE > 60.0 (>39); GLUCOSE, FASTING 97 MG/DL (74-106); POTASSIUM SERUM 4.1 MMOL/L (3.5-5.1); SODIUM LEVEL 141 MMOL/L (136-145)
== END ==
LOC: M RAD 12:03
PROVIDERS: ATTEND Nurse Practitioner Family
DX: Z01.818 Encounter for other preprocedural examination (principal); I70.0 Atherosclerosis of aorta; Z87.81 Personal history of (healed) traumatic fracture; Z79.899 Other long term (current) drug therapy

== ENCOUNTER 2023-06-10 06:04 | Inpatient (IN) | payer MEDICARE, OTHER ==
[~2023-06-10] VITALS: Ht 160 cm; Wt 84.1 kg
[2023-06-10] VITALS (10 sets, daily range): BP systolic 89–117; BP diastolic 57–72; TEMP 97–97.9; O2SAT 88–93
[2023-06-10] MEDS: ceFAZolin SOD 2 GM in IV 1 EA IV ONE (06:55)
[2023-06-10] MEDS ORDERED: HYDROmorphone HCL 2MG/ML 1ML VIAL As Ordered ONE (07:02)
[2023-06-10] MEDS ORDERED: MIDAZOLAM INJ 2MG/2ML VIAL As Ordered ONE (07:02)
[2023-06-10] MEDS ORDERED: LIDOCAINE 2% 100MG/5ML SDV (FOR ANES.) As Ordered ONE (07:02)
[2023-06-10] MEDS ORDERED: ONDANSETRON 4MG 2ML VIAL As Ordered ONE (07:02)
[2023-06-10] MEDS ORDERED: fentaNYL 100 MCG/2 ML INJECTION As Ordered ONE (07:02)
[2023-06-10] MEDS ORDERED: LIDOCAINE 2% JELLY 6ML SYRINGE As Ordered ONE (07:03)
[2023-06-10] MEDS ORDERED: ROCURONIUM BROMIDE 50MG/5ML VIAL As Ordered ONE (07:03)
[2023-06-10] MEDS ORDERED: propofoL 200 MG/20 ML VIAL As Ordered ONE (07:03)
[2023-06-10] MEDS ORDERED: ACETAMINOPHEN 1000MG 100ML IV BAG As Ordered ONE (07:04)
[2023-06-10] MEDS ORDERED: SUGAMMADEX SODIUM 500 MG/5 ML VIAL (BRIDION) As Ordered ONE (07:04)
[2023-06-10] MEDS ORDERED: DEXI60CA2 PO (07:06)
[2023-06-10] MEDS ORDERED: HOME MED LIST COMPLETE! XX SCH (07:10)
[2023-06-10] MEDS: LR 1,000 ML IV SCH ×2 (07:18→12:35)
[2023-06-10] MEDS ORDERED: GLUCOSE 4GM CHEW TABLET PO PRN (07:35)
[2023-06-10] MEDS ORDERED: GLUCAGON INJ 1MG VIAL SC PRN (07:35)
[2023-06-10] MEDS ORDERED: DEXTROSE 50% 50ML SYRINGE IV PRN (07:35)
[2023-06-10] MEDS ORDERED: MANNITOL 25% 12.5GM 50ML VIAL As Ordered ONE (08:09)
[2023-06-10] MEDS ORDERED: ePHEDrine SULFATE 25 MG/5 ML(5MG/ML) SYRINGE As Ordered ONE (08:34)
[2023-06-10] MEDS ORDERED: METOCLOPRAMIDE INJ 10MG/2ML VIAL As Ordered ONE (08:58)
[2023-06-10] MEDS: SPIRONOLACTONE 25 MG TAB PO SCH (09:00)
[2023-06-10] MEDS ORDERED: PHENYLephrine 500MCG 5ML (100MCG/ML) SYRINGE As Ordered ONE (09:36)
[2023-06-10] MEDS: INSULIN LISPRO (NovoLOG) PER UNIT SC SCH ×2 (12:00→21:00)
[2023-06-10] MEDS: LIDOCAINE 1% SDV 30ML VIAL As Ordered ONE (12:14)
[2023-06-10] MEDS: PENTOXIFYLLINE 400MG TAB PO SCH (12:30)
[2023-06-10] MEDS ORDERED: oxyCODONE 5MG TAB PO PRN (12:35)
[2023-06-10] MEDS ORDERED: HYDROMORPHONE HCL 0.5 MG/ 0.5 ML SYRINGE IV PRN (12:35)
[2023-06-10] MEDS ORDERED: ONDANSETRON 4MG 2ML VIAL IV PRN (12:35)
[2023-06-10] MEDS ORDERED: fentaNYL 100 MCG/2 ML INJECTION IV PRN (12:35)
[2023-06-10 13:07] LABS: HEMATOCRIT 37.1 % (36.0-47.0); MEAN CORPUSCULAR HEMOGLOBIN 25.5 pg (27.0-33.0); MEAN CORPUSCULAR HGB CONC 29.6 g/dl (32.0-36.5); MEAN CORPUSCULAR VOLUME 86.1 fl (80.0-96.0); PLATELET COUNT, AUTOMATED 141 10^3/uL (150-450); RED BLOOD COUNT 4.31 10^6/uL (4.00-5.40); WHITE BLOOD COUNT 5.3 10^3/uL (4.0-10.0)
[2023-06-10 13:29] LABS: BLOOD UREA NITROGEN 5 MG/DL (9-23); CALCIUM LEVEL 7.9 MG/DL (8.3-10.6); CARBON DIOXIDE LEVEL 25 MMOL/L (20-31); CHLORIDE LEVEL 109 MMOL/L (98-107); GLOMERULAR FILTRATION RATE > 60.0 (>39); GLUCOSE, FASTING 147 MG/DL (74-106); SODIUM LEVEL 141 MMOL/L (136-145)
[2023-06-10] MEDS: NS 1,000 ML IV SCH (14:30)
[2023-06-10] MEDS: DOCUSATE SODIUM 100MG CAPSULE PO SCH (15:07)
[2023-06-10] MEDS: ceFAZolin SOD 1 GM in D5W MINI-BAG PLUS 50 ML IV SCH (15:15)
[2023-06-10] MEDS: lisinopriL 40MG TAB PO SCH (15:15)
[2023-06-10] MEDS: FUROSEMIDE 20 MG TAB PO SCH (15:15)
[2023-06-10] MEDS: PERCOCET 5MG/325MG TAB PO PRN ×2 (16:52→22:10)
[2023-06-10 18:55] LABS: HEMOGLOBIN 10.3 g/dl (12.0-15.5)
[2023-06-10] MEDS: ROSUVASTATIN 10 MG TAB (CRESTOR) PO SCH (22:09)
[2023-06-11] VITALS (19 sets, daily range): BP systolic 96–130; BP diastolic 54–66; TEMP 97.5–98.6; O2SAT 86–96
[2023-06-11 05:45] LABS: HEMATOCRIT 32.9 % (36.0-47.0); HEMOGLOBIN 9.8 g/dl (12.0-15.5); MEAN CORPUSCULAR HEMOGLOBIN 25.3 pg (27.0-33.0); MEAN CORPUSCULAR HGB CONC 29.8 g/dl (32.0-36.5); PLATELET COUNT, AUTOMATED 133 10^3/uL (150-450); RED BLOOD COUNT 3.87 10^6/uL (4.00-5.40); WHITE BLOOD COUNT 3.7 10^3/uL (4.0-10.0)
[2023-06-11] MEDS: LEVOTHYROXINE 50MCG TABLET (0.05MG) PO SCH (06:09)
[2023-06-11 06:14] LABS: BLOOD UREA NITROGEN < 5 MG/DL (9-23); CALCIUM LEVEL 7.3 MG/DL (8.3-10.6); CARBON DIOXIDE LEVEL 25 MMOL/L (20-31); CHLORIDE LEVEL 107 MMOL/L (98-107); CREATININE FOR GFR 0.62 MG/DL (0.55-1.30); GLOMERULAR FILTRATION RATE > 60.0 (>39); GLUCOSE, FASTING 98 MG/DL (74-106); POTASSIUM SERUM 3.7 MMOL/L (3.5-5.1); SODIUM LEVEL 138 MMOL/L (136-145)
[2023-06-11] MEDS: SERTRALINE HCL 50 MG TAB PO SCH (11:15)
[2023-06-11] MEDS: OMEPRAZOLE 20MG CAP PO SCH (11:15)
[2023-06-11] MEDS: TADALAFIL 20 MG PO SCH (13:07)
[2023-06-11] MEDS: OPSUMIT 10 MG PO SCH (13:07)
[2023-06-11] MEDS ORDERED: PERCOCET PO (16:55)
[2023-06-11] MEDS ORDERED: COLA100C5 PO (16:55)
[2023-06-11] MEDS: OMEPRAZOLE 20MG CAP PO ONE (21:29)
[2023-06-12] VITALS (12 sets, daily range): BP systolic 101–130; BP diastolic 53–74; TEMP 97.2–98.2; O2SAT 84–92
[2023-06-12 06:49] LABS: HEMATOCRIT 32.4 % (36.0-47.0); HEMOGLOBIN 9.9 g/dl (12.0-15.5); MEAN CORPUSCULAR HEMOGLOBIN 25.8 pg (27.0-33.0); MEAN CORPUSCULAR HGB CONC 30.6 g/dl (32.0-36.5); MEAN CORPUSCULAR VOLUME 84.4 fl (80.0-96.0); PLATELET COUNT, AUTOMATED 154 10^3/uL (150-450); RED BLOOD COUNT 3.84 10^6/uL (4.00-5.40); WHITE BLOOD COUNT 3.9 10^3/uL (4.0-10.0)
[2023-06-12 07:12] LABS: BLOOD UREA NITROGEN 6 MG/DL (9-23); CALCIUM LEVEL 7.7 MG/DL (8.3-10.6); CARBON DIOXIDE LEVEL 26 MMOL/L (20-31); CHLORIDE LEVEL 107 MMOL/L (98-107); CREATININE FOR GFR 0.65 MG/DL (0.55-1.30); GLOMERULAR FILTRATION RATE > 60.0 (>39); GLUCOSE, FASTING 82 MG/DL (74-106); POTASSIUM SERUM 3.6 MMOL/L (3.5-5.1); SODIUM LEVEL 140 MMOL/L (136-145)
[2023-06-12] MEDS: ONDANSETRON 4MG 2ML VIAL IV PRN (10:32)
[2023-06-12] MEDS: ACETAMINOPHEN TAB 650MG DOSE (2X325MG) PO PRN (20:09)
[2023-06-13 02:00] VITALS: BP 117/63; TEMP 97.5; O2SAT 94
[2023-06-13 06:03] VITALS: BP 116/62; TEMP 97.9; O2SAT 94
[2023-06-13 07:06] LABS: HEMATOCRIT 29.8 % (36.0-47.0); HEMOGLOBIN 9.1 g/dl (12.0-15.5); MEAN CORPUSCULAR HEMOGLOBIN 25.6 pg (27.0-33.0); MEAN CORPUSCULAR HGB CONC 30.5 g/dl (32.0-36.5); MEAN CORPUSCULAR VOLUME 83.9 fl (80.0-96.0); PLATELET COUNT, AUTOMATED 156 10^3/uL (150-450); RED BLOOD COUNT 3.55 10^6/uL (4.00-5.40); WHITE BLOOD COUNT 4.5 10^3/uL (4.0-10.0)
[2023-06-13 07:35] LABS: BLOOD UREA NITROGEN 7 MG/DL (9-23); CALCIUM LEVEL 8.1 MG/DL (8.3-10.6); CARBON DIOXIDE LEVEL 26 MMOL/L (20-31); CHLORIDE LEVEL 104 MMOL/L (98-107); CREATININE FOR GFR 0.59 MG/DL (0.55-1.30); GLOMERULAR FILTRATION RATE > 60.0 (>39); GLUCOSE, FASTING 79 MG/DL (74-106); POTASSIUM SERUM 3.4 MMOL/L (3.5-5.1); SODIUM LEVEL 136 MMOL/L (136-145)
[2023-06-13 08:24] VITALS: BP 114/62
[2023-06-13 10:00] VITALS: BP 112/62; TEMP 97.7; O2SAT 96
[2023-06-13 14:00] VITALS: BP 107/60; TEMP 97; O2SAT 95
== END 2023-06-13 17:18 | disposition home or self-care (01) | DRG 658 ==
LOC: M OR 06:04 → M MSPAV 14:00
PROVIDERS: ADMIT Urology; ATTEND Urology
PROC: 8E0W4CZ Robotic Assisted Procedure of Trunk Region, Percutaneous Endoscopic Approach (ICD-10-PCS; 2023-06-10)
PROC: 0TB14ZZ Excision of Left Kidney, Percutaneous Endoscopic Approach (ICD-10-PCS; principal; 2023-06-10 07:30)
DX: D30.01 Benign neoplasm of right kidney (principal); Z88.2 Allergy status to sulfonamides; Z88.8 Allergy status to other drugs, medicaments and biological substances; Z79.899 Other long term (current) drug therapy

== ENCOUNTER → 2023-06-27 | Outpatient (REF) | payer MEDICARE, OTHER ==
[~2023-06-27] MED LIST changes: +COLA100C5 PO; +DEXI60CA2 PO; +PERCOCET PO
== END ==
LOC: M LABWUC 16:11
PROVIDERS: ATTEND Family Medicine
DX: E11.9 Type 2 diabetes mellitus without complications (principal)

== ENCOUNTER → 2023-07-03 | Outpatient (CLI) | payer MEDICARE, OTHER ==
[2023-07-03 17:23] LABS: HEMATOCRIT 36.2 % (36.0-47.0); HEMOGLOBIN 10.9 g/dl (12.0-15.5); MEAN CORPUSCULAR HEMOGLOBIN 25.9 pg (27.0-33.0); MEAN CORPUSCULAR HGB CONC 30.1 g/dl (32.0-36.5); PLATELET COUNT, AUTOMATED 205 10^3/uL (150-450); RED BLOOD COUNT 4.21 10^6/uL (4.00-5.40); WHITE BLOOD COUNT 4.2 10^3/uL (4.0-10.0)
[2023-07-03 17:48] LABS: BLOOD UREA NITROGEN 13 MG/DL (9-23); CALCIUM LEVEL 8.4 MG/DL (8.3-10.6); CARBON DIOXIDE LEVEL 27 MMOL/L (20-31); CHLORIDE LEVEL 107 MMOL/L (98-107); CREATININE FOR GFR 0.55 MG/DL (0.55-1.30); GLOMERULAR FILTRATION RATE > 60.0 (>39); GLUCOSE, FASTING 160 MG/DL (74-106); POTASSIUM SERUM 4.2 MMOL/L (3.5-5.1); SODIUM LEVEL 141 MMOL/L (136-145)
== END ==
LOC: M WUC 10:51
PROVIDERS: ATTEND Urology
DX: D36.9 Benign neoplasm, unspecified site (principal)

== ENCOUNTER → 2023-09-11 | Outpatient (CLI) | payer MEDICARE, OTHER ==
[~2023-09-11] MED LIST changes: -ROSU10TA6; +ROSU10TA61
== END ==
LOC: M WUC 11:30
PROVIDERS: ATTEND Internal Medicine Pulmonary Disease
DX: I27.21 Secondary pulmonary arterial hypertension (principal); M35.9 Systemic involvement of connective tissue, unspecified

== ENCOUNTER → 2023-09-11 | Outpatient (CLI) | payer MEDICARE, OTHER ==
[2023-09-11 17:44] LABS: BASO % 0.8 % (0.0-1.0); EOS # 0.2 10^3/uL (0.0-0.5); EOS % 5.1 % (0.0-3.0); HEMATOCRIT 34.5 % (36.0-47.0); HEMOGLOBIN 10.8 g/dl (12.0-15.5); LYMPH # 0.9 10^3/uL (1.5-5.0); MEAN CORPUSCULAR HEMOGLOBIN 25.7 pg (27.0-33.0); MEAN CORPUSCULAR HGB CONC 31.3 g/dl (32.0-36.5); MEAN CORPUSCULAR VOLUME 81.9 fl (80.0-96.0); MONO # 0.5 10^3/uL (0.0-0.8); MONO % 13.6 % (2.0-8.0); NEUTROPHILS # 2.3 10^3/uL (1.5-8.5); NEUTROPHILS % 57.2 % (36.0-66.0); PLATELET COUNT, AUTOMATED 228 10^3/uL (150-450); RED BLOOD COUNT 4.21 10^6/uL (4.00-5.40)
[2023-09-11 17:48] LABS: APPEARANCE, URINE CLEAR (CLEAR); BACTERIA, URINE AUTO NEGATIVE (NEGATIVE); BILIRUBIN, URINE AUTO NEGATIVE (NEGATIVE); BLOOD, URINE BLOOD NEGATIVE (NEGATIVE); COLOR, URINE STRAW (YELLOW); GLUCOSE, URINE (UA) AUTO NEGATIVE (NEGATIVE); KETONE, URINE AUTO NEGATIVE (NEGATIVE); LEUKOCYTE ESTERASE, URINE AUTO NEGATIVE (NEGATIVE); MUCUS, URINE SMALL (NEGATIVE); NITRITE, URINE AUTO NEGATIVE (NEGATIVE); PROTEIN, URINE AUTO NEGATIVE (NEGATIVE); RBC, URINE AUTO 0 /HPF (0-3); SPECIFIC GRAVITY URINE AUTO 1.008 (1.002-1.035); SQUAMOUS EPITHELIAL CELL UR AU 0 /HPF (0-6); UROBILINOGEN, URINE AUTO 0.2 mg/dL (0.0-2.0); WBC, URINE AUTO 0 /HPF (0-3)
[2023-09-11 17:59] LABS: HEMOGLOBIN A1c 5.6 % (4.0-6.0)
[2023-09-11 18:15] LABS: ALBUMIN 3.2 G/DL (3.2-5.2); ALKALINE PHOSPHATASE 80 U/L (46-116); ALT/SGPT 10 U/L (7.0-40); AST/SGOT 12 U/L (<34); BILIRUBIN,TOTAL 0.2 MG/DL (0.3-1.2); BLOOD UREA NITROGEN 12 MG/DL (9-23); CALCIUM LEVEL 8.6 MG/DL (8.3-10.6); CARBON DIOXIDE LEVEL 24 MMOL/L (20-31); CHLORIDE LEVEL 108 MMOL/L (98-107); CHOLESTEROL LEVEL 160 MG/DL (<200); CHOLESTEROL RISK RATIO 2.79 (<5); GLOMERULAR FILTRATION RATE > 60.0 (>39); GLUCOSE, FASTING 93 MG/DL (74-106); HDL CHOLESTEROL 57.2 MG/DL (>40); LDL CHOLESTEROL 83.4 MG/DL (<100); NON-HDL-C 102.8 MG/DL; POTASSIUM SERUM 4.2 MMOL/L (3.5-5.1); SODIUM LEVEL 141 MMOL/L (136-145); TOTAL PROTEIN 6.2 G/DL (5.7-8.2); TRIGLYCERIDES LEVEL 97 MG/DL (<150)
[2023-09-11 18:16] LABS: THYROID STIMULATING HORMONE 1.877 uIU/ML (0.55-4.78)
== END ==
LOC: M WUC 11:28
PROVIDERS: ATTEND Family Medicine
DX: E11.9 Type 2 diabetes mellitus without complications (principal); E78.5 Hyperlipidemia, unspecified; I10 Essential (primary) hypertension; E03.9 Hypothyroidism, unspecified

== ENCOUNTER → 2024-03-29 | Outpatient (CLI) | payer MEDICARE, OTHER | LOC: M SOG 07:53 | PROVIDERS: ATTEND Orthopaedic Surgery | DX: M25.552 Pain in left hip (principal) ==

== ENCOUNTER → 2024-04-08 | Outpatient (CLI) | payer MEDICARE, OTHER ==
[2024-04-08 16:44] LABS: BASO % 0.6 % (0.0-1.0); EOS # 0.4 10^3/uL (0.0-0.5); EOS % 7.8 % (0.0-3.0); HEMATOCRIT 34.9 % (36.0-47.0); HEMOGLOBIN 10.4 g/dl (12.0-15.5); LYMPH # 1.5 10^3/uL (1.5-5.0); LYMPH % 29.5 % (24.0-44.0); MEAN CORPUSCULAR HEMOGLOBIN 24.7 pg (27.0-33.0); MEAN CORPUSCULAR HGB CONC 29.8 g/dl (32.0-36.5); MEAN CORPUSCULAR VOLUME 82.9 fl (80.0-96.0); MONO # 0.5 10^3/uL (0.0-0.8); MONO % 9.4 % (2.0-8.0); NEUTROPHILS # 2.6 10^3/uL (1.5-8.5); NEUTROPHILS % 52.3 % (36.0-66.0); PLATELET COUNT, AUTOMATED 227 10^3/uL (150-450); RED BLOOD COUNT 4.21 10^6/uL (4.00-5.40)
[2024-04-08 16:50] LABS: ALBUMIN 3.8 G/DL (3.2-5.2); ALKALINE PHOSPHATASE 67 U/L (35-104); ALT/SGPT 11 U/L (7.0-40); AST/SGOT 12 U/L (<34); BILIRUBIN,TOTAL 0.2 MG/DL (0.3-1.2); BLOOD UREA NITROGEN 16 MG/DL (9-23); CALCIUM LEVEL 9.4 MG/DL (8.3-10.6); CARBON DIOXIDE LEVEL 24 MMOL/L (20-31); CHLORIDE LEVEL 107 MMOL/L (98-107); CHOLESTEROL LEVEL 182 MG/DL (<200); CHOLESTEROL RISK RATIO 2.65 (<5); CREATININE FOR GFR 0.67 MG/DL (0.55-1.30); GLOMERULAR FILTRATION RATE > 60.0 (>39); GLUCOSE, FASTING 96 MG/DL (74-106); HDL CHOLESTEROL 68.5 MG/DL (>40); LDL CHOLESTEROL 91.7 MG/DL (<100); NON-HDL-C 113.5 MG/DL; POTASSIUM SERUM 4.2 MMOL/L (3.5-5.1); SODIUM LEVEL 140 MMOL/L (136-145); TOTAL PROTEIN 6.7 G/DL (5.7-8.2); TRIGLYCERIDES LEVEL 109 MG/DL (<150)
[2024-04-08 16:51] LABS: THYROID STIMULATING HORMONE 1.686 uIU/ML (0.55-4.78)
[2024-04-08 17:15] LABS: CREATININE, URINE 74.2 MG/DL; MALB URINE SIEMENS < 3.0 MG/L
== END ==
LOC: M WUC 13:52
PROVIDERS: ATTEND Family Medicine
DX: E11.9 Type 2 diabetes mellitus without complications (principal); I10 Essential (primary) hypertension; I27.20 Pulmonary hypertension, unspecified; E78.5 Hyperlipidemia, unspecified; E03.9 Hypothyroidism, unspecified

== ENCOUNTER → 2024-05-03 | Outpatient (CLI) | payer MEDICARE, OTHER | LOC: M SOG 14:18 | PROVIDERS: ATTEND Orthopaedic Surgery | DX: M25.562 Pain in left knee (principal); M17.12 Unilateral primary osteoarthritis, left knee ==

== ENCOUNTER → 2024-07-08 | Outpatient (CLI) | payer MEDICARE, OTHER ==
[2024-07-08 19:22] LABS: BASO % 0.8 % (0.0-1.0); EOS # 0.2 10^3/uL (0.0-0.5); EOS % 3.4 % (0.0-3.0); HEMATOCRIT 36.2 % (36.0-47.0); HEMOGLOBIN 10.7 g/dl (12.0-15.5); LYMPH # 1.7 10^3/uL (1.5-5.0); LYMPH % 33.5 % (24.0-44.0); MEAN CORPUSCULAR HEMOGLOBIN 23.5 pg (27.0-33.0); MEAN CORPUSCULAR HGB CONC 29.6 g/dl (32.0-36.5); MEAN CORPUSCULAR VOLUME 79.6 fl (80.0-96.0); MONO # 0.5 10^3/uL (0.0-0.8); MONO % 10.3 % (2.0-8.0); NEUTROPHILS # 2.6 10^3/uL (1.5-8.5); NEUTROPHILS % 51.8 % (36.0-66.0); PLATELET COUNT, AUTOMATED 242 10^3/uL (150-450); RED BLOOD COUNT 4.55 10^6/uL (4.00-5.40)
[2024-07-08 19:28] LABS: ALBUMIN 3.6 G/DL (3.2-5.2); ALKALINE PHOSPHATASE 73 U/L (35-104); ALT/SGPT 10 U/L (7.0-40); AST/SGOT 19 U/L (<34); BILIRUBIN,TOTAL 0.2 MG/DL (0.3-1.2); BLOOD UREA NITROGEN 11 MG/DL (9-23); CARBON DIOXIDE LEVEL 24 MMOL/L (20-31); CHLORIDE LEVEL 105 MMOL/L (98-107); CHOLESTEROL LEVEL 161 MG/DL (<200); CHOLESTEROL RISK RATIO 2.34 (<5); CREATININE FOR GFR 0.61 MG/DL (0.55-1.30); GLOMERULAR FILTRATION RATE > 60.0 (>39); GLUCOSE, FASTING 101 MG/DL (74-106); HDL CHOLESTEROL 68.6 MG/DL (>40); LDL CHOLESTEROL 68.6 MG/DL (<100); NON-HDL-C 92.4 MG/DL; SODIUM LEVEL 141 MMOL/L (136-145); TOTAL PROTEIN 6.8 G/DL (5.7-8.2); TRIGLYCERIDES LEVEL 119 MG/DL (<150)
[2024-07-08 19:30] LABS: THYROID STIMULATING HORMONE 1.548 uIU/ML (0.55-4.78)
[2024-07-08 20:05] LABS: HEMOGLOBIN A1c 5.8 % (4.0-6.0)
[2024-07-09 07:40] LABS: WHITE BLOOD COUNT 5.1 10^3/uL (4.0-10.0)
== END ==
LOC: M WUC 13:32
PROVIDERS: ATTEND Family Medicine
DX: E11.9 Type 2 diabetes mellitus without complications (principal); I10 Essential (primary) hypertension; E03.9 Hypothyroidism, unspecified; E78.5 Hyperlipidemia, unspecified

== ENCOUNTER → 2024-07-20 | Outpatient (CLI) | payer MEDICARE, OTHER | LOC: M RAD 16:08 | PROVIDERS: ATTEND Family Medicine | DX: R09.89 Other specified symptoms and signs involving the circulatory and respiratory systems (principal) ==

== ENCOUNTER → 2024-08-04 | Outpatient (CLI) | payer MEDICARE, OTHER | LOC: M SOG 07:59 | PROVIDERS: ATTEND Orthopaedic Surgery | DX: M17.0 Bilateral primary osteoarthritis of knee (principal) ==

== ENCOUNTER → 2024-11-17 | Outpatient (REF) | payer MEDICARE, OTHER ==
[~2024-11-17] MED LIST changes: -BRIM1OPD; +BRIM5DRO25; +LISI40TA10 PO; -LISI40TA4 PO
== END ==
LOC: M LAB REF 14:19
PROVIDERS: ATTEND Internal Medicine Gastroenterology
DX: R19.7 Diarrhea, unspecified (principal)

== ENCOUNTER → 2024-11-24 | Outpatient (REF) | payer MEDICARE, OTHER | LOC: M LABWUC 17:45 | PROVIDERS: ATTEND Internal Medicine Pulmonary Disease | DX: I27.21 Secondary pulmonary arterial hypertension (principal); M35.9 Systemic involvement of connective tissue, unspecified; I50.9 Heart failure, unspecified; I10 Essential (primary) hypertension ==

== ENCOUNTER → 2024-12-15 | Outpatient (REF) | payer MEDICARE, OTHER | LOC: M LAB REF 14:10 | PROVIDERS: ATTEND Internal Medicine Gastroenterology | DX: R19.7 Diarrhea, unspecified (principal) ==

== ENCOUNTER → 2025-02-28 | Outpatient (CLI) | payer MEDICARE, OTHER ==
[~2025-02-28] MED LIST changes: -ROSU10TA61; +ROSU10TA90
[2025-02-28 17:32] LABS: BASO # 0.0 10^3/uL (0.0-0.2); BASO % 0.4 % (0.0-1.0); EOS # 0.2 10^3/uL (0.0-0.5); EOS % 3.5 % (0.0-3.0); LYMPH # 1.6 10^3/uL (1.5-5.0); LYMPH % 22.8 % (24.0-44.0); MONO # 0.6 10^3/uL (0.0-0.8); MONO % 8.2 % (2.0-8.0); NEUTROPHILS # 4.4 10^3/uL (1.5-8.5); NEUTROPHILS % 64.8 % (36.0-66.0); PLATELET COUNT, AUTOMATED 231 10^3/uL (150-450)
[2025-02-28 18:07] LABS: ALT/SGPT < 9 U/L (7.0-40); AST/SGOT 13 U/L (<34); CALCIUM LEVEL 8.6 MG/DL (8.3-10.6); CARBON DIOXIDE LEVEL 24 MMOL/L (20-31); CHLORIDE LEVEL 109 MMOL/L (98-107); CREATININE FOR GFR 0.57 MG/DL (0.55-1.30); GLOMERULAR FILTRATION RATE > 90.0 (>39); POTASSIUM SERUM 3.7 MMOL/L (3.5-5.1); SODIUM LEVEL 144 MMOL/L (136-145)
== END ==
LOC: M WUC 14:34
PROVIDERS: ATTEND Family Medicine
DX: D50.9 Iron deficiency anemia, unspecified (principal); E11.9 Type 2 diabetes mellitus without complications